=== PATIENT | male | born 1975 | race Caucasian/White ===

== ENCOUNTER 2025-07-23 13:36 | Emergency (ER) | payer BC, OTHER ==
[~2025-07-23] VITALS: Ht 182.9 cm; Wt 100.7 kg
[~2025-07-23 13:36] MED LIST: NORTRIPTYLINE H25 MG PO
[2025-07-23 14:25] VITALS: TEMP 98.4
[2025-07-23] MEDS: METOCLOPRAMIDE HCL 10 MG/2ML VIAL IV ONE (15:44)
[2025-07-23] MEDS: SODIUM CHLORIDE 0.9% 1000ML 1,000 ML IV ONE (15:44)
[2025-07-23 15:48] LABS: BASOPHILS % 0.5 % (0.0-1.0); EOSINOPHILS % 1.3 % (0.0-6.0); LYMPHOCYTES % 28.9 % (18.0-39.1); MONOCYTES % 6.7 % (4.4-11.3); NEUTROPHILS % 62.0 % (38.7-80.0); RED CELL DISTRIBUTION WIDTH 12.3 % (11.7-14.4)
[2025-07-23 16:11] LABS: EST GLOMERULAR FILTRATION RATE 103.0 ML/MIN (>=60)
[2025-07-23 16:22] LABS: LEUKOCYTE ESTERASE ,URINE NEGATIVE (NEGATIVE); PROTEIN,URINE DIPSTICK 1+ (NEGATIVE); URINE UROBILINOGEN 1 mg/dL (0.2 - 1)
[2025-07-23 16:31] LABS: EPITHELIAL CELLS,URINE FEW /LPF; WBC,URINE (MAN) 0-5 /HPF (0-5)
[2025-07-23 17:09] VITALS: PULSE 57; RESP 16
[2025-07-23] MEDS ORDERED: REGLAN10 MG PO (17:22)
[2025-07-23 17:40] VITALS: BP 121/67; PULSE 72; RESP 16; O2SAT 100
== END 2025-07-23 17:44 | disposition home or self-care (01) ==
LOC: ER 15:04
DX: R11.0 Nausea (principal); M54.50 Low back pain, unspecified; E78.5 Hyperlipidemia, unspecified; F32.A Depression, unspecified; Z87.442 Personal history of urinary calculi
CPT/HCPCS: 36415; 74176; 80053; 81001; 83690; 85025; 99284; J2765; J7030